=== PATIENT | female | born 1995 | race Two or more races ===

== ENCOUNTER 2021-06-30 07:29 | Inpatient (IN) | payer OTHER ==
[~2021-06-30] VITALS: Ht 172.7 cm; Wt 71.2 kg
[2021-06-30] MEDS ORDERED: PRENATAL CAPLE1 EAC1 PO (09:03)
== END 2021-07-02 12:23 | disposition home or self-care (01) | DRG 805 ==
LOC: LDR 07:29 → SURG-SUITE 07:29
PROVIDERS: ADMIT Student in an Organized Health Care Education/Training Program; ATTEND Student in an Organized Health Care Education/Training Program
PROC: 10E0XZZ Delivery of Products of Conception, External Approach (ICD-10-PCS; principal; 2021-06-30)
PROC: 0KQM0ZZ Repair Perineum Muscle, Open Approach (ICD-10-PCS; 2021-06-30)
PROC: 4A1HXCZ Monitoring of Products of Conception, Cardiac Rate, External Approach (ICD-10-PCS; 2021-06-30)
DX: O70.1 Second degree perineal laceration during delivery (principal); O60.14X0 Preterm labor third trimester with preterm delivery third trimester, not applicable or unspecified; Z37.0 Single live birth; Z3A.36 36 weeks gestation of pregnancy; Z20.822 Contact with and (suspected) exposure to COVID-19